=== PATIENT | male | born 1970 | race Caucasian/White ===

== ENCOUNTER 2021-01-17 23:13 | Emergency (ER) | payer BC ==
[~2021-01-17] VITALS: Ht 180.3 cm; Wt 131.8 kg
[2021-01-18 00:04] LABS: ALBUMIN 3.6 g/dL (3.5-5.0); POTASSIUM 3.5 mmol/L (3.5-5.1)
[2021-01-18 00:05] LABS: CALCIUM 8.6 mg/dL (8.3-10.5)
[2021-01-18 00:06] LABS: BASO # 0.03 K/mm3 (0.02-0.10); HEMATOCRIT 44.5 % (42.0-52.0); HEMOGLOBIN 15.1 g/dL (13.5-18.0); LYMPH# 0.66 K/mm3 (1.50-4.00); MEAN CELL VOLUME 85 fl (78-100); MEAN CORPUSCULAR HEMOGLOBIN 29 pg (27-31); MEAN CORPUSCULAR HGB CONC 34 g/dL (33-37); MEAN PLATELET VOLUME 12.6 fl (7.4-10.4); MONO # 0.59 K/mm3 (0.20-0.80); PLATELET COUNT 136 K/mm3 (130-400); RED BLOOD COUNT 5.21 M/mm3 (4.20-5.60); RED CELL DISTRIBUTION WIDTH 12.8 % (11.5-14.5); TOTAL PROTEIN 7.3 g/dL (6.4-8.3); WHITE BLOOD COUNT 8.6 K/mm3 (4.8-10.8)
[2021-01-18 00:08] LABS: TOTAL BILIRUBIN 0.6 mg/dL (0.2-1.2)
[2021-01-18 02:14] VITALS: BP 137/92
== END 2021-01-18 02:14 | disposition short-term general hospital (02) ==
LOC: ED 23:13
PROVIDERS: Family Medicine
DX: U07.1 COVID-19 (principal)
CPT/HCPCS: J1100